=== PATIENT | male | born 1945 | race Caucasian/White ===

== ENCOUNTER 2017-01-06 06:55 | Inpatient (IN) | payer OTHER, MEDICARE ==
[2017-01-06] MEDS ORDERED: solu-MEDROL 125 MG IV ONE (07:16)
[2017-01-06] MEDS ORDERED: Pepcid 20 MG VIAL IV ONE ×2 (07:16→07:27)
[2017-01-06] MEDS ORDERED: DUONEB 0.5-3 MG/3 ml Neb IH ONE ×2 (07:16→07:32)
[2017-01-06] MEDS ORDERED: Aplisol ID ONE ×2 (07:22→07:27)
--- NOTE | 2017-01-06 07:23 | ERPHSYRPT ---
- History of Present Illness Time Seen by Provider: 01/06/17 07:15 Source: patient, family () Exam Limitations: no limitations Patient Subjective Stated Complaint: pt states for several months he has had a cough and wekness with intermittent low grade fever. states he has had night sweats. states he has 2 rounds of antibiotis and steroids. Triage Nursing Assessment: pt pink, warm, dry. pt alert and oriented x3. pt ambulated into Er without difficulty. pt afebrile. Physician History: Patient presents with progressive SOB with exertion getting worse since October; He has had two rounds of ATBS, Steroids and inhalers; First round helped. second round didn't . no travel and no exposures; now with loss of appetite, wt loss 10-12 #s since November, and night sweats with fever off and on. 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 grandparent and has reaction to PPD so will for go Timing/Duration: today (worse), week(s) (6-8), intermittent, worse Activities at Onset: rest Severity of Dyspnea-Max: moderate Severity of Dyspnea-Current: moderate Possible Cause: occasional episodes Modifying Factors: Improves With: albuterol inhaler (helps), coughing ( exacerbates), exertion (exacerbates) Associated Symptoms: cough, fever, loss of appetite, wheezing, productive cough , sweating (nioght) International travel in last 2 weeks: No Allergies/Adverse Reactions: No Known Drug Allergies Allergy (Unverified 01/06/17 07:11) Home Medications: Albuterol Sulfate [Ventolin Hfa] 18 gm IH Q4-6HPRN PRN 01/06/17 [History] Hx Tetanus, Diphtheria Vaccination/Date Given: Yes (up to date) Hx Influenza Vaccination/Date Given: Yes Hx Pneumococcal Vaccination/Date Given: Yes Immunizations Up to Date: Yes - Review of Systems Constitutional: Fever, Chills, Fatigue, Night Sweats, Weight Loss Eyes: No Symptoms Ears, Nose, & Throat: No Symptoms Respiratory: Cough, Dyspnea, Dyspnea on Exertion (SLATER), Wheezing Cardiac: No Chest Pain, No Palpitations, No Syncope Abdominal/Gastrointestinal: No Abdominal Pain, No Nausea, No Vomiting, No Diarrhea, No Constipation, No Other Genitourinary Symptoms: No Hematuria, No Flank Pain Musculoskeletal: Arthralgias, Myalgias, No Back Pain, No Neck Pain, No Fall, No Injury Skin: No No Symptoms Neurological: No No Symptoms Psychological: No No Symptoms Endocrine: No No Symptoms Hematologic/Lymphatic: No No Symptoms Immunological/Allergic: No No Symptoms - Past Medical History Pertinent Past Medical History: No - Past Surgical History Past Surgical History: No - Social History Smoking Status: Current every day smoker Exposure to second hand smoke: Yes Alcohol Use: None Drug Use: none Patient Lives Alone: No Significant Family History: no pertinent family hx - Nursing Vital Signs Nursing Vital Signs: Initial Vital Signs Temperature 97.9 F 01/06/17 07:11 Pulse Rate 107 H 01/06/17 07:11 Respiratory Rate 20 01/06/17 07:11 Blood Pressure 140/82 01/06/17 07:11 O2 Sat by Pulse Oximetry 95 01/06/17 07:11 Pain Scale Pain Intensity 0 - Physical Exam General Appearance: mild distress, alert, thin Eye Exam: PERRL/EOMI, eyes nml inspection, No photophobia Ears, Nose, Throat Exam: hearing grossly normal, normal ENT inspection, normal pharynx Neck Exam: normal inspection, non-tender, supple, full range of motion, No meningismus, No carotid bruit, No JVD, No lymphadenopathy (R), No lymphadenopathy (L) Respiratory Exam: respiratory distress (mild tachypnea), airway intact, diminished breath sounds, prolonged expirations, crackles/rales (scattered diffuse bibasilar), wheezing, other (clubbing), No normal breath sounds, No chest tenderness, No lungs clear, No rhonchi, No pleural rub Cardiovascular/Chest Exam: normal heart sounds, regular rate/rhythm, normal peripheral pulses, tachycardia, No murmur, No edema, No JVD Abdominal/Gastrointestinal Exam: soft, normal bowel sounds, No tenderness, No guarding, No pulsatile mass, No rebound, No organomegaly Rectal Exam: deferred Extremity Exam: non-tender, normal range of motion, normal inspection, normal capillary refill, no calf tenderness, no pedal edema, No calf tenderness, No evelia's sign Peripheral Pulses Exam: carotid (R): 4+, carotid (L): 4+, femoral (R): 4+, femoral (L): 4+, dorsalis-pedis (R): 3+, dorsalis-pedis (L): 3+ Neurologic Exam: alert, oriented x 3, cooperative, housing project manager II-XII nml as tested, normal mood/affect, nml cerebellar function, nml station & gait, sensation nml Skin Exam: normal color, warm, dry, cyanosis (nail beds), other (clubbing), No rash, No petechiae SpO2 Interpretation: normal SpO2: 95 Oxygen Delivery: Room Air - Course Nursing assessment & vital signs reviewed: Yes EKG Interpreted by Me: RATE (86), Sinus Rhythm, NORMAL AXIS, NORMAL INTERVALS, NORMAL QRS, NORMAL ST-T Rhythm Strip: Rate, Sinus Tachycardia - Radiology Exams Chest X-ray Interpretation: Interpreted by me, Reviewed by me, Infiltrates (RUL highly suspicious for TB), Other (COPD) - CT Exams Chest CT Interpretation: Tele-radiologist Report, No PE, Pneumonia (vs TB RUL) Ordered Tests: Active Orders 24 hr Category Date Time Status Bedrest with BRP/BSC ROUTINE Activity 01/06/17 11:15 Ordered Admission/Status Order ROUTINE Care 01/06/17 11:17 Ordered Admission Nurse Coordinator STAT Care 01/06/17 07:17 Active Code Status Order ROUTINE Care 01/06/17 11:17 Ordered EKG-ER Only STAT Care 01/06/17 07:16 Active IV Care Q6H Care 01/06/17 11:17 Ordered Isolation, Initiate & Maintain Q6H Care 01/06/17 11:15 Ordered Pulse Oximetry (ED) STAT Care 01/06/17 07:16 Active Gloria Garay ROUTINE Care 01/06/17 11:17 Ordered Weight,Daily 0600 Care 01/06/17 11:17 Ordered Consult Pulmonology ROUTINE Cons 01/06/17 11:15 Ordered Regular Diet Diet 01/06/17 Lunch Ordered CHEST 2 VIEWS (PA AND LAT) Stat Exams 01/06/17 07:16 Completed CHEST WITH CONTRAST [CT] Stat Exams 01/06/17 08:19 Completed BLOOD CULTURE Stat Lab 01/06/17 07:55 Received CBC W DIFF Stat Lab 01/06/17 07:20 Completed CMP Stat Lab 01/06/17 07:20 Completed CULTURE,SPUTUM Stat Lab 01/06/17 07:16 Uncollected D-DIMER QUANTITATION Stat Lab 01/06/17 07:20 Completed Lactic Acid Stat Lab 01/06/17 Completed MAGNESIUM Stat Lab 01/06/17 07:20 Completed PROTIME WITH INR Stat Lab 01/06/17 07:20 Completed Oxygen NASAL CANNULA 3 lpm RT 01/06/17 11:15 Ordered Peak Expiratory Flow Rate ONCE RT 01/06/17 07:16 Completed Pulse Oximetry CONTINUOUS RT 01/06/17 11:23 Ordered Respiratory Nebulizer STAT RT 01/06/17 07:18 Completed Respiratory Therapy Consult ROUTINE RT 01/06/17 11:15 Ordered Transfer Order Routine Transfer 01/06/17 Ordered Medication Summary Generic Name Dose Route Start Last Admin Trade Name Freq PRN Reason Stop Dose Admin Sodium Chloride 1,000 mls @ 100 mls/hr 01/06/17 07:30 01/06/17 07:33 Sodium Chloride 0.9% 1000 Ml IV 02/05/17 07:29 100 mls/hr .Q10H BENITO Administration Discontinued Medications Generic Name Dose Route Start Last Admin Trade Name Freq PRN Reason Stop Dose Admin Albuterol/Ipratropium 3 ml 01/06/17 07:16 01/06/17 07:25 Duoneb 0.5-3 Mg/3 Ml Neb IH 01/06/17 07:17 3 ml STAT ONE Administration Albuterol/Ipratropium Confirm 01/06/17 07:32 Duoneb 0.5-3 Mg/3 Ml Neb Administered 01/06/17 07:33 Dose 3 ml IH .STK-MED ONE Enoxaparin Sodium 60 mg 01/06/17 08:23 01/06/17 08:27 Enoxaparin Sodium SQ 01/06/17 08:24 60 mg STAT ONE Administration Enoxaparin Sodium Confirm 01/06/17 08:24 Enoxaparin Sodium Administered 01/06/17 08:25 Dose 80 mg SQ .STK-MED ONE Famotidine 20 mg 01/06/17 07:16 01/06/17 07:33 Pepcid 20 Mg Vial IV 01/06/17 07:17 20 mg STAT ONE Administration Famotidine Confirm 01/06/17 07:27 Pepcid 20 Mg Vial Administered 01/06/17 07:28 Dose 20 mg IV .STK-MED ONE Sodium Chloride Confirm 01/06/17 07:27 Sodium Chloride 0.9% 1000 Ml Administered 01/06/17 07:28 Dose 1,000 mls @ ud .ROUTE .STK-MED ONE Ceftriaxone Sodium/Dextrose 1 g in 50 mls @ 100 mls/hr 01/06/17 09:48 09:54 Rocephin 1 Gm-D5w 50 Ml Bag IV 01/06/17 10:17 100 mls/hr STAT ONE Administration Ceftriaxone Sodium/Dextrose Confirm 01/06/17 09:51 Rocephin 1 Gm-D5w 50 Ml Bag Administered 01/06/17 09:52 Dose 1 g in 50 mls @ ud IV .STK-MED ONE Methylprednisolone Sodium Succinate 125 mg 01/06/17 07:16 01/06/17 08:23 Solu-Medrol 125 Mg IV 01/06/17 07:17 125 mg STAT ONE Administration Methylprednisolone Sodium Succinate Confirm 01/06/17 08:21 Solu-Medrol 125 Mg Administered 01/06/17 08:22 Dose 125 mg .ROUTE .STK-MED ONE Tuberculin PPD 5 unit 01/06/17 07:22 01/06/17 07:29 Aplisol ID 01/06/17 07:23 5 unit STAT ONE Administration Tuberculin PPD Confirm 01/06/17 07:27 Aplisol Administered 01/06/17 07:28 Dose 5 unit ID .STK-MED ONE Lab/Rad Data: Laboratory Result Diagrams 01/06/17 07:20 01/06/17 07:20 Laboratory Results 01/06/17 01/06/17 01/06/17 Range/Units Unknown 07:55 07:20 WBC (4.0-10.5) K/mm3 RBC (4.1-5.6) M/mm3 Hgb (12.5-18.0) gm/dl Hct (42-50) % MCV (78-100) fl MCH (26-32) pg MCHC (32-36) g/dl RDW (11.5-14.0) % Plt Count (150-450) K/mm3 MPV (6-9.5) fl Gran % (36.0-66.0) % Lymphocytes % (24.0-44.0) % Monocytes % (0.0-12.0) % Eosinophils % (0.00-5.0) % Basophils % (0.0-0.4) % Basophils # (0-0.4) INR 1.19 (0.8-3.0) D-Dimer 6572 H* (0-500) ng/mL Sodium (136-145) mEq/L Potassium (3.5-5.1) mEq/L Chloride (98-107) mEq/L Carbon Dioxide (21-32) mEq/L Anion Gap (5-15) MEQ/L BUN (9-20) mg/dL Creatinine (0.55-1.30) mg/dl Estimated GFR ML/MIN Glucose (70-110) MG/DL Lactic Acid 1.3 (0.4-2.0) Calcium (8.5-10.1) mg/dL Magnesium (1.8-2.4) mg/dL Total Bilirubin (0.2-1.0) mg/dL AST (15-37) U/L ALT (12-78) U/L Alkaline Phosphatase (46-116) U/L Serum Total Protein (6.4-8.2) gm/dL Albumin (3.4-5.0) g/dL Influenza Type A Ag NEGATIVE (NEGATIVE) Influenza Type B Ag NEGATIVE (NEGATIVE) RSV (PCR) NEGATIVE (Negative) 01/06/17 01/06/17 Range/Units 07:20 07:20 WBC 10.5 (4.0-10.5) K/mm3 RBC 4.65 (4.1-5.6) M/mm3 Hgb 13.3 (12.5-18.0) gm/dl Hct 40.3 L (42-50) % MCV 86.7 (78-100) fl MCH 28.6 (26-32) pg MCHC 33.0 (32-36) g/dl RDW 12.9 (11.5-14.0) % Plt Count 435 (150-450) K/mm3 MPV 10.0 H (6-9.5) fl Gran % 75.2 H (36.0-66.0) % Lymphocytes % 9.9 L (24.0-44.0) % Monocytes % 13.2 H (0.0-12.0) % Eosinophils % 1.4 (0.00-5.0) % Basophils % 0.3 (0.0-0.4) % Basophils # 0.03 (0-0.4) INR (0.8-3.0) D-Dimer (0-500) ng/mL Sodium 133 L (136-145) mEq/L Potassium 3.5 (3.5-5.1) mEq/L Chloride 94 L (98-107) mEq/L Carbon Dioxide 28.3 (21-32) mEq/L Anion Gap 13.7 (5-15) MEQ/L BUN 7 L (9-20) mg/dL Creatinine 0.88 (0.55-1.30) mg/dl Estimated GFR > 60 ML/MIN Glucose 141 H (70-110) MG/DL Lactic Acid (0.4-2.0) Calcium 8.4 L (8.5-10.1) mg/dL Magnesium 2.0 (1.8-2.4) mg/dL Total Bilirubin 0.50 (0.2-1.0) mg/dL AST 68 H (15-37) U/L ALT 39 (12-78) U/L Alkaline Phosphatase 133 H (46-116) U/L Serum Total Protein 7.5 (6.4-8.2) gm/dL Albumin 2.5 L (3.4-5.0) g/dL Influenza Type A Ag (NEGATIVE) Influenza Type B Ag (NEGATIVE) RSV (PCR) (Negative) reviewed - Progress Progress: improved (after duoneb), re-examined (after respiratory treatment) Air Movement: fair Progress Note: 01/06/17 07:28 at bedside; will get EKG, CXR and labs and give the patient a PPD; will give duoneb with peak flow pre and post, IV fluids, steroids and H2 tran and recheck 01/06/17 07:43 CBC ok lactic 1.3; EKG NSR wnl; CXR pending; labs pending peak flow pre 150; post 160; will recheck post xr 01/06/17 07:50 CXR shows RUL changes highly suspicious for TB; will move to neg flow room and use precautions and notify Inf control 01/06/17 07:57 rechecked after duoneb; improved air movement; clinically and subjectively improved; VS ok; will continue isolation 01/06/17 08:20 Dr Kevin consulted and will admit, start therapy and get an Qfegold; labs show low Na = 133; hi sgot = 68 and alk phos = 133; D dimer elevated and will get CT to evaluate for PE; INR 1.19; [facility]; will give lovenox prophylactically and to start terapy if has PE 01/06/17 08:25 01/06/17 09:18 [facility] notified at time of admission request; [facility] us [place]; [facility] just retruned our call, took patient information and will call back about admit 01/06/17 09:21 Resp panel neg; CT results pending; patient rechecked and doing well; notified of other results and need for admission 01/06/17 09:50 CT neg for PE but confirms RUL consolidation suspect TB +- pnuemonia; will start ATBS; O2 sats dropping to [address] and will place on O2 to keep sats >92; still waiting for [place] to confirm admission; patient and family notified; repairer typewriter notified of possible TB exposures and appropriate protocols instituted 01/06/17 11:25 [facility] had no beds; [facility] had no beds; patient requested admission here as lives here in town and family member in hospital here now. Will admit here. Dr Kevin accepted. Patient had failed outpatient treatment x 2. 01/06/17 11:27 Blood Culture(s) Obtained: Yes Discussed with : [facility] (consulted and will admit), Other ([facility] and [place], [place] notified) Will see patient in: hospital (full admit) Counseled pt/family regarding: lab results, diagnosis, need for follow-up, rad results, smoking cessation - Departure Time of Disposition: 11:27 Departure Disposition: In-patient Admission Clinical Impression: Acute dyspnea, abnormal cxr possible TB, Weight loss, non-intentional, Elevated d-dimer, Hyponatremia, Hypoxia, Failure of outpatient treatment, Pneumonia Condition: Serious Critical Care Time: Yes Critical Care Time(excluding separately billable procedures): 30-74 minutes Referrals: XAVIER VILA DO [Primary Care Provider] - RAY KEVIN MD [ACTIVE STAFF] -
[2017-01-06] MEDS ORDERED: Sodium Chloride 0.9% 1000 ML 1,000 ML ONE (07:27)
[2017-01-06] MEDS ORDERED: Sodium Chloride 0.9% 1000 ML 1,000 ML IV SCH (07:30)
[2017-01-06 07:32] LABS: BASOPHIL % 0.3 % (0.0-0.4); Eosinophil % 1.4 % (0.00-5.0); Granulocytes % 75.2 % (36.0-66.0); Lymphocytes % 9.9 % (24.0-44.0); Mean Cell Volume 86.7 fl (78-100); Mean Corpuscular Hemoglobin 28.6 pg (26-32); Monocytes % 13.2 % (0.0-12.0); Platelet Count 435 K/mm3 (150-450); Red Blood Count 4.65 M/mm3 (4.1-5.6); Red Cell Distribution Width 12.9 % (11.5-14.0); White Blood Count 10.5 K/mm3 (4.0-10.5)
[2017-01-06 07:44] LABS: INR 1.19 (0.8-3.0); PROTIME 13.2 SECONDS (8.83-12.87)
[2017-01-06 08:06] LABS: ALBUMIN 2.5 g/dL (3.4-5.0); ALKALINE PHOSPHATASE 133 U/L (46-116); ANION GAP 13.7 MEQ/L (5-15); BLOOD UREA NITROGEN 7 mg/dL (9-20); CHLORIDE 94 mEq/L (98-107); Carbon Dioxide 28.3 mEq/L (21-32); Glucose 141 MG/DL (70-110); Potassium 3.5 mEq/L (3.5-5.1); SGOT/AST 68 U/L (15-37); SGPT/ALT 39 U/L (12-78); SODIUM 133 mEq/L (136-145); Total Protein 7.5 gm/dL (6.4-8.2)
[2017-01-06] MEDS ORDERED: solu-MEDROL 125 MG ONE (08:21)
[2017-01-06] MEDS ORDERED: ENOXAPARIN SODIUM SQ ONE ×2 (08:23→08:24)
--- NOTE | 2017-01-06 09:43 | XRAY ---
Indication: Weakness, short of breath, and cough for 3 months. Comparison: None PA/lateral chest hyperinflated with right upper lobe consolidating airspace opacities and a few left lung calcified granulomas. Remaining heart, lungs, and bony thorax normal.
--- NOTE | 2017-01-06 09:46 | XRAY ---
Indication: Cough, dyspnea, tachycardia, weight loss, and elevated d-dimer. Possible TB. Multiple contiguous axial images obtained through the chest using 80 cc Isovue 370 contrast and PE protocol. Comparison: None There is good opacification of the pulmonary arteries. No filling defect or pulmonary embolus. Heart is not enlarged. A few left hilar calcified nodes. There are several borderline prominent mediastinal lymph nodes, largest precarinal measuring 11 x 19 mm. 15 mm right suprahilar lymph node. Aorta is minimally arteriosclerotic without aneurysm/dissection. Examination of the lung parenchyma demonstrates moderate centrilobular pulmonary emphysema predominantly in the mid to upper lung mendez bilaterally. There are consolidating airspace opacities involving the entire right upper lobe with some fluid leveling. Much lesser degree seen of the superior segment of the left lower lobe posterior medially. No effusion. Partial differential includes organizing bacterial pneumonia, primary tuberculosis, or chronic fungal infection. Tiny left upper lobe peripheral calcified granulomas. Irregular 9 mm noncalcified nodule seen in the left lower lobe. Bony thorax intact with minimal degenerative changes of the spine and multilevel small Schmorl nodes. Limited upper abdomen demonstrates mild fatty liver and hepatic/splenic calcified granulomas. Tiny pancreatic body calcifications commonly seen with chronic pancreatitis. Impression: 1. Negative for pulmonary embolus. 2. Right upper lobe and much lesser degree right lower lobe consolidating airspace opacities with some fluid leveling. Borderline prominent mediastinal and right hilar lymph nodes. Partial differential includes organizing bacterial pneumonia on background of pulmonary emphysema, primary tuberculosis, or chronic fungal infection. 3. Left lower lobe subcentimeter indeterminant noncalcified nodule. Finding possibly granulomatous as there is evidence for old granulomatous disease elsewhere. Comparison studies would be of benefit if available elsewhere. If not, recommend follow-up per Fleischner guidelines. 4. Fatty liver and chronic pancreatitis calcifications. CT DI 13.33
[2017-01-06] MEDS ORDERED: ROCEPHIN 1 Gm-D5w 50 ml Bag** 1 G/50 ML IVPB IV ONE ×2 (09:48→09:51)
[2017-01-06 10:45] VITALS: BP 119/62
[2017-01-06 11:09] VITALS: PULSE 77
[2017-01-06] MEDS ORDERED: solu-MEDROL 125 MG IV SCH (12:00)
[2017-01-06 13:09] VITALS: O2SAT 91
[2017-01-06] MEDS ORDERED: DUONEB 0.5-3 MG/3 ml Neb IH SCH (15:00)
--- NOTE | 2017-01-06 16:17 | PCM.SSS ---
History of Present Illness - Chief Complaint Chief Complaint: PNEUMONIA, COPD, R/O TB History of Present Illness: is a 71 year old male with no local physician who presented to the ER with a 2 week history of productive cough, fever and night sweats. Symptoms worsening and have persisted despite 2 courses of levaquin and po steroids. he is chronic smoker, retired, denies alcohol or drug use. he also reports a 15 lbs weight loss in the last 3 months. he denies any sick contacts, no recent travel. - Review of Systems Constitutional: Fever, Chills, Night Sweats Respiratory: Cough, Short Of Breath Cardiac: No Chest Pain, No Edema, No Syncope Abdominal/Gastrointestinal: No Abdominal Pain, No Nausea, No Vomiting, No Diarrhea Skin: No Rash All Other Systems: Reviewed and Negative Medications & Allergies Home Medications: Home Medication List Albuterol Sulfate [Ventolin Hfa] 18 gm IH Q4-6HPRN PRN 01/06/17 [History Confirmed 01/06/17] Allergies/Adverse Reactions: Allergies Allergy/AdvReac Type Severity Reaction Status Date / Time No Known Drug Allergies Allergy Unverified 01/06/17 07:11 - Past Medical History Past Medical History: No Neurological History: No Pertinent History ENT History: No Pertinent History Cardiac History: No Pertinent History Respiratory History: No Pertinent History Endocrine Medical History: No Pertinent History Musculoskelatal History: No Pertinent History GI Medical History: No Pertinent History History: No Pertinent History Pyscho-Social History: No Pertinent History Male Reproductive Disorders: No Pertinent History - Past Surgical History Past Surgical History: No Neuro Surgical History: No Pertinent History Cardiac History: No Pertinent History Respiratory Surgery: No Pertinent History GI Surgical History: No Pertinent History Musculskeletal Surgical Hx: No Pertinent History Male Surgical History: No Pertinent History - Social History Smoking Status: Current every day smoker How long have you smoked: 40 YEARS Exposure to second hand smoke: Yes Alcohol: None Drug Use: none Significant Family History: no pertinent family hx - Physical Exam Vital Signs: Vital Signs - 24 hr Temp Pulse Resp BP Pulse Ox 01/06/17 13:14 20 01/06/17 12:48 98.7 F 77 20 119/62 91 L 01/06/17 11:28 95 01/06/17 11:08 77 28 H 119/62 95 01/06/17 10:43 82 12 119/62 97 01/06/17 09:59 86 26 H 120/56 96 01/06/17 09:21 102 H 20 125/80 94 L 01/06/17 08:07 97 H 17 133/76 96 01/06/17 07:41 100 01/06/17 07:18 92 H 18 93 L 01/06/17 07:11 97.9 F 107 H 20 140/82 95 Oxygen-Last 24 hours O2 Percentage 3 Liters = 32% O2 Percentage 3 Liters = 32% O2 Percentage 3 Liters = 32% O2 Percentage 3 Liters = 32% O2 Percentage 3 Liters = 32% General Appearance: thin Neurologic Exam: alert Eye Exam: PERRL/EOMI, eyes nml inspection Respiratory Exam: prolonged expirations, rhonchi Cardiovascular Exam: regular rate/rhythm, normal heart sounds, normal peripheral pulses Gastrointestinal/Abdomen Exam: soft, normal bowel sounds, No tenderness, No mass Extremity Exam: normal inspection, normal range of motion, pelvis stable Skin Exam: normal color, warm, dry, No rash Results - Labs Lab/Micro Results: Lab Results-Last 24 Hours 01/06/17 Range/Units Unknown Lactic Acid 1.3 (0.4-2.0) - Other Procedures and Tests Respiratory Therapy 01/06/17 11:15 Oxygen NASAL CANNULA 3 lpm Respiratory Therapy Consult ROUTINE 01/06/17 13:10 Smoking Cessation Education ONCE Assessment/Plan (1) Pneumonia Current Visit: Yes Status: Acute Assessment & Plan: constellation of symptoms highly concerning for TB, patient being transferred to [facility] due to insurance purposes and bed available. Dr Serrano gave report to Dr Goncalves who agrees to accept in transfer. blood and sputum culture as well as quantiferon gold pending, will need AFB culture but since no sputum collected will allow this to be collected at [facility]. patient was given rocephin and IV solu medrol in ER prior to transfer. Mr Guardado was informed of results and need for transfer and all questions were answered at the bedside. Code(s): J18.9 - PNEUMONIA, UNSPECIFIED ORGANISM (2) Night sweats Current Visit: Yes Status: Acute Code(s): R61 - GENERALIZED HYPERHIDROSIS (3) Failure of outpatient treatment Current Visit: Yes Status: Acute Code(s): Z78.9 - OTHER SPECIFIED HEALTH STATUS (4) Hypoxia Current Visit: Yes Status: Acute Code(s): R09.02 - HYPOXEMIA (5) Weight loss, non-intentional Current Visit: Yes Status: Acute Code(s): R63.4 - ABNORMAL WEIGHT LOSS Hospital Summary - Vitals & Intake/Output Vital Signs: Vital Signs Temperature 98.7 F 01/06/17 12:48 Pulse Rate 77 01/06/17 12:48 Respiratory Rate 20 01/06/17 13:14 Blood Pressure 119/62 01/06/17 12:48 O2 Sat by Pulse Oximetry 91 L 01/06/17 12:48 Oxygen-Last Documented O2 Percentage 3 Liters = 32% Intake & Output: Intake & Output 01/04/17 01/05/17 01/06/17 01/07/17 11:59 11:59 11:59 11:59 Intake Total 480 Balance 480 Weight 58.06 kg - Lab Result Diagrams: 01/06/17 07:20 01/06/17 07:20 Lab Results-Last 24 Hrs: Lab Results-Last 24 Hours 01/06/17 Range/Units Unknown Lactic Acid 1.3 (0.4-2.0) - Procedures and Test Procedures and Tests throughout Hospitalization: Therapy Orders & Screens 01/06/17 11:15 Oxygen NASAL CANNULA 3 lpm Comment: Diagnosis: Shortness of Breath Respiratory Therapy Consult ROUTINE Comment: Reason For Exam: Diagnosis: Shortness of Breath 01/06/17 13:10 Smoking Cessation Education ONCE Comment: Diagnosis: PNEUMONIA, COPD, R/O TB Smoking Status: Current every day smoker How long have you smoked: 40 YEARS Have you smoked in the past 12 months: Yes Approximately how many cigarettes per day: 6 Do you dip or chew tobacco: No - Discharge Disposition: XFER OTHER Condition: Stable Prescriptions: No Action Albuterol Sulfate [Ventolin Hfa] 18 gm IH Q4-6HPRN PRN PRN Reason: Shortness Of Breath/Wheezing Follow up with: RAY MOORE MD [ACTIVE STAFF] - XAVIER VILA DO [Primary Care Provider] -
[2017-01-06] MEDS ORDERED: Pepcid 20 MG PO SCH (22:00)
[2017-01-07] MEDS ORDERED: ENOXAPARIN SODIUM SQ SCH (10:00)
[2017-01-07] MEDS ORDERED: ROCEPHIN 1 Gm-D5w 50 ml Bag** 1 G/50 ML IVPB IV SCH (10:00)
[2017-01-08 14:25] LABS: Mitogen-NIL >10.00 IU/mL (>=0.50); TB-NIL <0.01 IU/mL (<=0.34); TuberculosisScr-Qferon-Gold Negative
== END 2017-01-06 16:43 | DRG 195 ==
LOC: ED 06:55 → MED SURG 12:03
PROVIDERS: ADMIT Family Medicine; ATTEND Family Medicine
DX: J18.9 Pneumonia, unspecified organism (principal); R61 Generalized hyperhidrosis; Z78.9 Other specified health status; R09.02 Hypoxemia; R63.4 Abnormal weight loss
CPT/HCPCS: 36000; 36415; 71020; 71260; 80053; 83605; 83735; 85025; 85379; 85610; 86480; 87040; 87631; 93005; 93041; 94150; 94640; 96372; 96374; 99285; J0696; J1650; J2930; A9270-GY